=== PATIENT | male | born 1995 | race Two or more races ===

== ENCOUNTER 2024-09-28 17:40 | Emergency (ER) | payer MEDICAID, SELFPAY ==
[2024-09-28 18:05] VITALS: BP 136/86; PULSE 63; RESP 17; TEMP 36.9; O2SAT 100; BMI 24.8
--- NOTE | 2024-09-28 18:21 | PD.EDURI ---
Upper Respiratory Inf. RME/HPI General Chief Complaint: Dental/Oral/Throat Stated Complaint: HARD TIME SWALLOWING SORE THROAT X LAST NITE Time Seen by Provider: 09/28/24 18:07 Arrival date/time: 09/28/24 17:40 RME / HPI RME / HPI Narrative: Patient is a 28-year-old male who presents with complaint of throat pain onset last night. Patient states pain is exacerbated with swallowing. He is able to swallow liquids and clear his secretions. No fevers. Related Data Previous Rx's ?Medication ?Instructions ?Recorded sulfamethoxazole 400 2 tab PO BID #40 tabs 09/28/20 mg-trimethoprim 80 mg tablet amoxicillin 875 mg-potassium 1 tab PO BID #14 tabs 01/16/23 clavulanate 125 mg tablet ibuprofen 600 mg tablet 600 mg PO TID #14 tabs 01/16/23 amoxicillin 875 mg tablet 875 mg PO BID 7 days #14 tabs 09/28/24 ibuprofen 600 mg tablet 600 mg PO TID PRN pain #30 tabs 09/28/24 Allergies Allergy/AdvReac Type Severity Reaction Status Date / Time No Known Allergies Allergy Verified 09/28/24 17:41 Review of Systems Review of Systems Systems Reviewed: All systems reviewed, normal except as documented ED Exam Narrative Physical exam: Constitutional: no acute distress, age appropriate, non-toxic Eyes: conjunctivae w/o pallor, EOMI HENT: normocephalic, atraumatic. Posterior oropharynx is erythematous. Uvula midline. No tonsillar exudates, tonsils 1+. No trismus Respiratory Effort: no stridor, effort normal, no tachypnea Skin: warm, dry; No rash Neurology: alert, oriented X 4. Normal gait Psychology: cooperative, normal mood Course Quality Measures none Orders Category Date Time Status Strep A Rapid Stat Lab 09/28/24 18:29 Completed Amoxicillin Cap [Amoxil Cap] Med 09/28/24 19:47 Discontinued 500 mg PO X1 ONE Ketorolac Inj [Toradol Inj] Med 09/28/24 18:15 Discontinued 30 mg IM X1 ONE Vital Signs Vital signs: Vital Signs Temperature 98.5 F 09/28/24 18:05 Pulse Rate 63 09/28/24 18:05 Respiratory Rate 17 09/28/24 18:05 Blood Pressure 136/86 H 09/28/24 18:05 Pulse Oximetry (%) 100 09/28/24 18:05 Oxygen Delivery Method Room Air 09/28/24 18:05 Upper Respiratory Infection MDM Narrative MDM Narrative:: 28-year-old male presents with complaint of sore throat. Differential diagnoses include strep pharyngitis, viral pharyngitis, peritonsillar abscess, GERD Strep screen positive. Exam not consistent with [employer]. Patient appears well and nontoxic. Rx sent for amoxicillin and first dose was given here. Return to ED precautions given and counseled to follow-up with primary care if not better in the next 3 days Patient data External records reviewed:: [facility] previous records Clinical information provided by:: patient Social determinants that could affect healthcare access:: none Patient has the following chronic illnesses:: None How is presenting disease/condition affected by chronic disease/condition?: no chronic disease Evaluation data The following diagnostics were reviewed and interpreted by me:: lab results Lab and/or radiology exams considered but not ordered:: Considered CT neck, but not indicated based on history and exam Interpretation Summary: Strep screen positive Medications / Prescriptions Medications or Prescriptions considered but not ordered:: N/A Medication administrations:: Medication Administration History Discontinued Medications Amoxicillin (Amoxicillin 250 Mg Capsule) 500 mg PO X1 ONE Stop: 09/28/24 19:48 Ketorolac Tromethamine (Ketorolac Inj 30 Mg/Ml Vial) 30 mg IM X1 ONE Stop: 09/28/24 18:16 Last Admin: 09/28/24 19:00 Dose: 30 mg Documented By: EO See above Consultations Consultation(s) initiated? (list below): No Diagnosis Upper Respiratory Differential Diagnosis: other (See MDM section) Most likely diagnosis given after review of the tests above:: Strep pharyngitis Admission Indicated Admission indicated?: not indicated Admission Request Was there a request for admission?: No Disposition Plan Disposition Plan: Discharge Discharge Attestation Discharge Attestation: The patient and all family members were given an opportunity to ask questions and understood the discharge instructions. Discharge instructions specifically effects, indications for sooner follow up or return to the emergency department, and the expected course of current diagnosis. Patient condition: Stable Discharge Plan Plan Patient Disposition: HOME (Self Care) Prescriptions/Referrals Prescriptions/Med Rec: New amoxicillin 875 mg tablet 875 mg PO BID 7 Days Qty: 14 0RF ibuprofen 600 mg tablet 600 mg PO TID PRN (Reason: pain) Qty: 30 0RF No Action sulfamethoxazole-trimethoprim 400-80 mg tablet 2 tab PO BID Qty: 40 0RF amoxicillin-pot clavulanate 875-125 mg tablet 1 tab PO BID Qty: 14 0RF ibuprofen 600 mg tablet 600 mg PO TID Qty: 14 0RF Referrals: No Primary/Family,Physician [Primary Care Provider] - In 1 week Problem List Clinical Impression: Acute streptococcal pharyngitis Patient/Caregiver Discharge Instructions Education Materials: ED Pharyngitis, Strep (Confirmed) Additional Instructions: Your strep test was positive today. Rest and drink plenty of fluids. Take medication as prescribed. Follow-up with your PCP if not better in the next few days. Return to the ED for any new or worsening symptoms Print Language: Arabic Stand Alone Forms: [employer] Award Info., Patient Portal Info Letter
[2024-09-28] MEDS: KETOROLAC INJ 30 MG/ML VIAL IM (19:00)
[2024-09-28 19:08] LABS: Strep A Rapid Positive (Negative)
[2024-09-28] MEDS: AMOXICILLIN 250 MG CAPSULE 500 MG PO (20:41)
== END 2024-09-28 20:44 | disposition home or self-care (01) ==
PROVIDERS: Physician Assistant; Emergency Provider Emergency Medicine
DX: J02.0 Streptococcal pharyngitis (principal)
CPT/HCPCS: 87651; 96372; 99283; J1885; A9270

== ENCOUNTER 2025-06-17 10:54 | Emergency (ER) | payer MEDICAID, SELFPAY ==
[2025-06-17 11:01] VITALS: BP 127/75; PULSE 67; RESP 17; TEMP 36.8; O2SAT 98; BMI 24.8
[2025-06-17] MEDS: IBUPROFEN TAB 600 MG TABLET PO (11:53)
[2025-06-17] MEDS: DEXAMETHASONE SOD PHOS INJ 10 MG/ML VIAL PO (11:54)
[2025-06-17] MEDS: LIDOCAINE HCL 1% 20 ML VIAL 2.1 ML INFL (11:55)
[2025-06-17] MEDS: cefTRIAXone SOD INJ 1,000 MG VIAL 1000 MG IM (11:55)
--- NOTE | 2025-06-17 13:05 | PD.EDDENTL ---
ED Dental RME/HPI General Chief complaint: Dental/Oral/Throat Stated complaint: Sore throat X 3 days Time Seen by Provider: 06/17/25 10:55 Arrival date/time: 06/17/25 10:54 29-year-old male presents to the emergency department for complaints of sore throat patient for symptom onset 3 days ago patient ports no fever nausea or vomiting but does report pain with swallowing Limitations: no limitations Related Data Previous Rx's ?Medication ?Instructions ?Recorded sulfamethoxazole 400 2 tab PO BID #40 tabs 09/28/20 mg-trimethoprim 80 mg tablet amoxicillin 875 mg-potassium 1 tab PO BID #14 tabs 01/16/23 clavulanate 125 mg tablet ibuprofen 600 mg tablet 600 mg PO TID #14 tabs 01/16/23 ibuprofen 600 mg tablet 600 mg PO TID PRN pain #30 tabs 09/28/24 amoxicillin 875 mg-potassium 1 tab PO BID 7 days #14 tabs 06/17/25 clavulanate 125 mg tablet ibuprofen 800 mg tablet 800 mg PO TID PRN pain #30 tabs 06/17/25 Allergies Allergy/AdvReac Type Severity Reaction Status Date / Time No Known Allergies Allergy Verified 06/17/25 10:57 Review of Systems Review of Systems Systems Reviewed: All systems reviewed, normal except as documented Constitutional Constitutional: Reports system reviewed and no additional complaints, except as documented, Denies fever(s) and Denies headache(s) Eyes Eyes: Reports system reviewed and no additional complaints, except as documented and Denies blurry vision ENT Ears, Nose, Mouth, and Throat: Reports system reviewed and no additional complaints, except as documented, Denies headache(s), Reports mouth pain, Reports nasal congestion and Reports nasal discharge Cardiovascular Cardiovascular: Reports system reviewed and no additional complaints, except as documented, Denies chest pain and Denies dyspnea Respiratory Respiratory: Reports system reviewed and no additional complaints, except as documented, Denies chest congestion, Denies cough and Denies dyspnea Gastrointestinal Gastrointestinal: Reports system reviewed and no additional complaints, except as documented and Denies abdominal pain Integumentary/Breasts Skin/Breast: Reports system reviewed and no additional complaints, except as documented and Denies rash Neurologic Neurologic: Reports system reviewed and no additional complaints, except as documented, Reports as per HPI and Denies headache(s) Past Medical History Past Medical History CARDIAC: Negative Congestive Heart Failure RESPIRATORY: Negative Chronic Obstructive Pulmonary Disease (COPD) GENITOURINARY: Negative Renal Disease ENDOCRINE: Negative Diabetes Mellitus Type 1 or Diabetes Mellitus Type 2 Social History SMOKING STATUS: Never smoker ED Exam General Limitations: Present no limitations General appearance: Present alert and in no apparent distress Head Head exam: Present atraumatic, normocephalic and normal inspection Eye Eye exam: Present normal appearance, PERRL and EOMI; Absent conjunctival injection ENT ENT exam: Present mucous membranes moist Expanded ENT Exam Mouth exam: Absent drooling or trismus Neck Neck exam: Present normal inspection, full ROM and trachea midline Chest Chest inspection: Present normal inspection and symmetric chest wall rise Respiratory Respiratory exam: Present normal lung sounds bilaterally; Absent respiratory distress Cardiovascular Cardiovascular exam: Present regular rate, normal rhythm and normal heart sounds Abdominal Exam Abdominal exam: Present soft and normal bowel sounds Extremities Exam Extremities exam: Present normal inspection and full ROM Back Exam Back exam: Present normal inspection and full ROM Neurological Exam Neurological exam: Present alert, oriented X3 and CN II-XII intact Psychiatric Psychiatric exam: Present normal affect and normal mood Skin Skin exam: Present warm, dry, intact and normal color Course Quality Measures none Orders Category Date Time Status Dexamethasone Inj [Decadron Inj] Med 06/17/25 11:35 Discontinued 10 mg PO X1 ONE Ibuprofen Tab [Motrin Tab] Med 06/17/25 11:35 Discontinued 600 mg PO X1 ONE Lidocaine 1% 20 ml [Xylocaine 1% 20 ML] Med 06/17/25 11:35 Discontinued 2.1 ml INFL X1 ONE cefTRIAXone [Rocephin] Med 06/17/25 11:35 Discontinued 1,000 mg IM X1 ONE Vital Signs Vital signs: Vital Signs Temperature 98.3 F 06/17/25 11:01 Pulse Rate 67 06/17/25 11:01 Respiratory Rate 17 06/17/25 11:01 Blood Pressure 127/75 06/17/25 11:01 Pulse Oximetry (%) 98 06/17/25 11:01 Oxygen Delivery Method Room Air 06/17/25 11:01 O2 saturation 98% room air within the limits Dental / Oral MDM Narrative MDM Narrative:: 29-year-old male presents to the emergency department for complaints of sore throat patient for symptom onset 3 days ago patient ports no fever nausea or vomiting but does report pain with swallowing On exam patient well-appearing patient does not appear toxic acute distress Symptoms consistent with pharyngitis patient is no trismus or hoarseness of voice Patient be treated symptomatically patient given first dose of antibiotics and steroids here Patient discharged home in no distress to follow-up with primary care doctor in the next 24 to 48 hours and for any worsening symptoms to return to the ER immediately Patient data External records reviewed:: [facility] previous records Clinical information provided by:: patient Social determinants that could affect healthcare access:: none Patient has the following chronic illnesses:: None How is presenting disease/condition affected by chronic disease/condition?: no chronic disease Evaluation data The following diagnostics were reviewed and interpreted by me:: other (specify) Lab and/or radiology exams considered but not ordered:: Considered not ordered Interpretation Summary: N/A Medications / Prescriptions Medications or Prescriptions considered but not ordered:: Given Medication administrations:: Medication Administration History Discontinued Medications Ceftriaxone Sodium (Ceftriaxone Sod Inj 1,000 Mg Vial) 1,000 mg IM X1 ONE Stop: 06/17/25 11:36 Last Admin: 06/17/25 11:55 Dose: 1,000 mg Documented By: ALVERTO Dexamethasone Sodium Phosphate (Dexamethasone Sod Phos Inj 10 Mg/Ml Vial) 10 mg PO X1 ONE Stop: 06/17/25 11:36 Last Admin: 06/17/25 11:54 Dose: 10 mg Documented By: ALVERTO Ibuprofen (Ibuprofen Tab 600 Mg Tablet) 600 mg PO X1 ONE Stop: 06/17/25 11:36 Last Admin: 06/17/25 11:53 Dose: 600 mg Documented By: ALVERTO Lidocaine HCl (Lidocaine Hcl 1% 20 Ml Vial) 2.1 ml INFL X1 ONE Stop: 06/17/25 11:36 Last Admin: 06/17/25 11:55 Dose: 2.1 ml Documented By: ALVERTO Given Consultations Consultation(s) initiated? (list below): No Diagnosis Dental Differential Diagnosis: other (Viral pharyngitis, streptococcal pharyngitis) Most likely diagnosis given after review of the tests above:: Pharyngitis Admission Indicated Admission indicated?: not indicated Admission Request Was there a request for admission?: No Disposition Plan Disposition Plan: Discharge Discharge Attestation Discharge Attestation: The patient and all family members were given an opportunity to ask questions and understood the discharge instructions. Discharge instructions specifically effects, indications for sooner follow up or return to the emergency department, and the expected course of current diagnosis. Patient condition: Stable Discharge Plan Plan Patient Disposition: HOME (Self Care) Discharge Disposition comment: Stable Prescriptions/Referrals Prescriptions/Med Rec: New ibuprofen 800 mg tablet 800 mg PO TID PRN (Reason: pain) Qty: 30 0RF amoxicillin-pot clavulanate 875-125 mg tablet 1 tab PO BID 7 Days Qty: 14 0RF No Action sulfamethoxazole-trimethoprim 400-80 mg tablet 2 tab PO BID Qty: 40 0RF ibuprofen 600 mg tablet 600 mg PO TID PRN (Reason: pain) Qty: 30 0RF amoxicillin-pot clavulanate 875-125 mg tablet 1 tab PO BID Qty: 14 0RF ibuprofen 600 mg tablet 600 mg PO TID Qty: 14 0RF Problem List Clinical Impression: Strep throat Patient/Caregiver Discharge Instructions Education Materials: Self-Care for Sore Throats Additional Instructions: Please follow up with your primary care doctor in the next 24-48hrs for any worsening symptoms return here immediately Print Language: Tajik Stand Alone Forms: [employer] Award Info., Work/School Release, Patient Portal Info Letter PA/EVENT MARKETING INTERN Supervising Physician PA/EVENT MARKETING INTERN Supervising Physician: Dr. khanna
== END 2025-06-17 12:03 | disposition home or self-care (01) ==
LOC: SERX 12:02
PROVIDERS: Emergency Provider Emergency Medicine
DX: J02.0 Streptococcal pharyngitis (principal)
CPT/HCPCS: 96372; 99282; J0696; J1100; J3490; A9270